=== PATIENT | female | born 1950 | race Caucasian/White ===

== ENCOUNTER → 2016-10-26 | Outpatient (CLI) | payer MEDICARE, OTHER ==
[~2016-10-26] MED LIST: ATEN50TA PO; GABA600T PO; LISI10TA2 PO
== END ==
LOC: CARD 07:44
PROVIDERS: ATTEND Physician Assistant
DX: I65.23 Occlusion and stenosis of bilateral carotid arteries (principal); I10 Essential (primary) hypertension; I47.1 Supraventricular tachycardia; R00.2 Palpitations
CPT/HCPCS: 93306

== ENCOUNTER 2022-01-26 09:32 | Outpatient (RCR) | payer MEDICARE, OTHER ==
[~2022-01-26 09:32] MED LIST changes: -LISI10TA2 PO; +LISI10TA25 PO
== END 2022-01-28 | disposition home or self-care (01) ==
PROVIDERS: ATTEND Psychiatry & Neurology Neurology
DX: M54.12 Radiculopathy, cervical region (principal); S14.3XXA Injury of brachial plexus, initial encounter; I10 Essential (primary) hypertension

== ENCOUNTER 2022-02-23 11:12 | Outpatient (RCR) | payer MEDICARE, OTHER | END 2022-02-23 12:12 | disposition home or self-care (01) | PROVIDERS: ATTEND Psychiatry & Neurology Neurology | DX: S49.91XD Unspecified injury of right shoulder and upper arm, subsequent encounter (principal); I10 Essential (primary) hypertension ==